=== PATIENT | female | born 1965 | race Hispanic/Latino ===

== ENCOUNTER 2023-04-15 13:04 | Emergency (ER) | payer BC ==
[2023-04-15] MEDS ORDERED: Morphine 4 MG/ML VIAL ONE (13:53)
[2023-04-15] MEDS ORDERED: Ondansetron PF 4 MG/2 ML Vial ONE (13:53)
== END 2023-04-15 17:58 | disposition home or self-care (01) ==
LOC: ERS 13:04
DX: S82.002A Unspecified fracture of left patella, initial encounter for closed fracture (principal); I10 Essential (primary) hypertension; Z79.899 Other long term (current) drug therapy; W01.0XXA Fall on same level from slipping, tripping and stumbling without subsequent striking against object, initial encounter
CPT/HCPCS: 27520; 96374; 96375; J2270; J2405